=== PATIENT | male | born 2000 | race African-American/Black ===

== ENCOUNTER 2020-11-03 11:59 | Emergency (ER) | payer BC, OTHER ==
[~2020-11-03] VITALS: Ht 180.3 cm; Wt 59.0 kg
[2020-11-03] MEDS ORDERED: LIDOCAINE 1% HCL (LOCAL ANESTH.) INJ 20ML MDV IJ ONE (12:45)
[2020-11-03 12:58] VITALS: BP 129/82
[2020-11-03] MEDS ORDERED: TETANUS-DIPTH-ACEL PERTUSSIS 0.5ML SYR Tdap IM ONE (13:15)
== END 2020-11-03 14:14 | disposition home or self-care (01) ==
LOC: ER 11:59
DX: S81.812A Laceration without foreign body, left lower leg, initial encounter (principal); X58.XXXA Exposure to other specified factors, initial encounter; Y93.89 Activity, other specified; Y92.89 Other specified places as the place of occurrence of the external cause; Y99.8 Other external cause status
CPT/HCPCS: 12001; 90471; 90715; 99283; J2001